=== PATIENT | female | born 1960 | race Caucasian/White ===

== ENCOUNTER 2017-05-21 12:23 | Inpatient (IN) | payer MEDICARE ==
[2017-05-20 13:33] LABS: BASOPHILS 0.5 %; BASOPHILS ABSOLUTE 0.05 10/3/uL (0.0-0.16); EOSINOPHILS 2.4 %; EOSINOPHILS ABSOLUTE 0.25 10/3/uL (0.0-0.53); HEMATOCRIT 36.4 % (36.0-48.0); HEMOGLOBIN 11.9 g/dL (12.0-16.0); IMMATURE GRANULOCYTES 0.7 %; IMMATURE GRANULOCYTES ABSOLUTE 0.07 10/3/uL (0.0-0.11); LYMPHOCYTES 28.7 %; LYMPHOCYTES ABSOLUTE 2.93 10/3/uL (0.67-4.30); MEAN CORPUS HGB CONC 32.7 g/dL (32.0-36.0); MEAN CORPUSCULAR HEMOGLOB 29.5 pg (26.0-34.0); MEAN CORPUSCULAR VOLUME 90.3 fL (80-100); MEAN PLATELET VOLUME 10.8 fL (9.2-13.0); MONOCYTES 8.6 %; MONOCYTES ABSOLUTE 0.88 10/3/uL (0.21-1.20); NEUTROPHILS 59.1 %; NEUTROPHILS ABSOLUTE 6.04 10/3/uL (2.02-8.40); PLATELET COUNT 387 10/3/uL (150-400); RBC DISTRIBUTION WIDTH 15.3 % (12.0-16.0); RED CELL COUNT 4.03 10/6/uL (4.0-5.6); WHITE BLOOD CELLS 10.2 10/3/uL (4.5-10.5)
[2017-05-20 13:35] LABS: MANUAL DIFF NO %
[2017-05-20 13:42] LABS: BUN (BLOOD UREA NITROGEN) 11 MG/DL (6-23); CALCIUM, SERUM 9.3 MG/DL (8.5-10.4); CHLORIDE, SERUM 108 MMOL/L (96-112); CO2 (CARBON DIOXIDE) 30 MMOL/L (24-34); CREATININE 0.89 MG/DL (0.55-1.02); GFR AFRICAN AMERICAN 85 ML/MIN (>=60); GFR NON AFRICAN AMERICAN 73 ML/MIN (>=60); GLUCOSE, SERUM 84 MG/DL (60-99); POTASSIUM, SERUM 3.8 MMOL/L (3.5-5.3); SODIUM, SERUM 143 MMOL/L (135-148)
[~2017-05-21] VITALS: Ht 160 cm; Wt 116.3 kg
--- NOTE | ~2017-05-21 | CN ---
Consultation Report [facility] [address] [place]. [address] NAME: GRIS VELAZQUEZ : 62 STATUS : ADM IN [facility] WITH [facility]#: [id number] AGE: 56 ADM/REG DATE : 05/21/17 MR#: [id number] REPORT SERV DATE: 05/22/17 DICTATED BY: SOHAM AZUL DATE: 05/21/17 REPORT STATUS : Draft TRANSCRIBED BY: MILA DATE: 05/21/17 DATE OF CONSULTATION: 05/21/2017 REASON FOR CONSULTATION: Consulted for medical and diabetes management. IDENTIFYING DATA: 1. Primary care physician is Chris Javed at [facility]. 2. Pain management, Bora Michaud. HISTORY OF PRESENT ILLNESS: This is a pleasant 56-year-old female with a longstanding history of COPD and asthma. She is chronically on O2 at 2 L nasal cannula at home, also essential hypertension for which she also has a history of dysrhythmias in the past, hypercholesterolemia, depression, and anxiety as well as a diagnosis of diabetes type 2, diagnosed on 06/2016. Presently, the hospitalist group has been consulted for medical and diabetes management. The patient's blood sugars on admission pre-surgery had a glucose of 85. She is presently on her O2 at 2 L with an O2 saturation at 96%. Her blood pressure is presently controlled at 135/87 and she will have her cholesterol, depression, and medications for her diabetic neuropathy continued as she has no present complaints. The patient's history was obtained through interview with the patient. The patient has not been here at this facility prior. She states she has been to an [facility] facility, and prior to that, her care was in [place]. PAST MEDICAL HISTORY: 1. The patient wears glasses and has dentures. 2. Ovarian cyst. 3. Sinusitis. 4. Arthritis. 5. Diverticulitis. 6. Anxiety and depression. 7. Frequent UTIs. 8. Genital warts for which she takes Valtrex every morning. 9. Hypertension. 10.High cholesterol. 11.Dysrhythmias where the patient is noted on metoprolol, but she has no fly finisher and states her primary care physician manages her care. 12.Chronic O2 at 2 L nasal cannula. 13.COPD. 14.Asthma. 15.Chronic knee pain. 16.Gastroesophageal reflux disease. 17.Neuropathy in her hands and feet. 18.Diabetes type 2, diagnosed 06/2016 where she presently states her average blood sugars are up to 120s. 19.Frequent falls, which has led her to this present hospitalization with her displaced Consultation Report [facility] [id number] [place]. [address] NAME: GRIS VELAZQUEZ : 62 STATUS : ADM IN PAT#: [id number] AGE: 56 ADM/REG DATE : 05/21/17 MR#: [id number] REPORT SERV DATE: 05/22/17 DICTATED BY: SOHAM AZUL DATE: 05/21/17 REPORT STATUS : Draft TRANSCRIBED BY: MILA DATE: 05/21/17 fracture of the left fibula. HOME MEDICATIONS: 1. Levemir 30 units subcu twice a day. 2. Jentadueto 2.5 mg/1000 mg tablet one tablet p.o. with breakfast and supper. 3. Lopressor 100 mg p.o. twice a day. 4. Lopressor 50 mg p.o. daily at 1500. 5. Singulair 10 mg p.o. at bedtime. 6. MS Contin 15 mg p.o. every 12 hours. 7. Movantik 25 mg p.o. every morning. 8. Naprosyn 500 mg p.o. every 12 hours. 9. Albuterol inhaler two puffs inhalation every 6 hours p.r.n. as needed for shortness of breath. 10.Xanax 1 mg p.o. three times daily. 11.Lipitor 40 mg p.o. every morning. 12.Flexeril 10 mg p.o. four times daily. 13.Cymbalta 60 mg p.o. at bedtime. 14.Fenofibrate 160 mg p.o. every morning. 15.NovoLog 10 units subcu before meals. 16.Endocet 10/325 tablets one tablet p.o. every 6 hours p.r.n. pain. 17.Protonix 20 mg p.o. at bedtime. 18.Lyrica 200 mg p.o. three times daily. 19.Phenergan 25 mg p.o. at bedtime. 20.Requip 2 mg p.o. three times daily. 21.Zanaflex 4 mg p.o. three times daily. 22.Valtrex 1000 mg p.o. every morning and it is noted that the patient also uses this medication p.r.n. for her genital warts. ALLERGIES: SULFA. SOCIAL HISTORY: The patient is . Has three children. States she uses a cane and a walker to ambulate at home where she has 5 stairs to her porch, otherwise, a single level, was a previous smoker for 33 years and quit December of 2016. She states she does have occasional drink of wine, maybe once a week. FAMILY HISTORY: Mother is positive for hypertension. Father is positive for myocardial infarction and coronary artery disease and was at 50 years of age. The patient has one brother who is at 47 years old from lung cancer. The patient has one sister who is physically well, although she is mentally handicapped. SURGICAL HISTORY: 1. The patient previously had a stress test and echo in 2011 when she resided in [place] and states that she had no problems. 2. Colonoscopy in 2008. 3. Sinus surgery in 2002. Consultation Report [address] [place]. [address] NAME: GRIS VELAZQUEZ : 62 STATUS : ADM IN [facility] WITH [facility]#: [id number] AGE: 56 ADM/REG DATE : 05/21/17 MR#: [id number] REPORT SERV DATE: 05/22/17 DICTATED BY: SOHAM AZUL DATE: 05/21/17 REPORT STATUS : Draft TRANSCRIBED BY: MILA DATE: 05/21/17 4. Left ankle fracture for which she fell a month ago and is presently status post ORIF of the left distal ankle on 05/21/2017. 5. Right elbow surgery in 2006. 6. Cholecystectomy in 1985. 7. Appendectomy in 1985. 8. Hysterectomy in 1985. 9. Spinal stimulator placed in 2014. REVIEW OF SYSTEMS: A full 10-point review of systems was obtained. Pertinent positives are noted in HPI. All other systems are negative. Presently, the patient is alert and oriented x3. She has no complaints of chest pain. No shortness of breath. No nausea and vomiting. No abdominal pain. Displays no confusion or agitation. No change in bowel or bladder habits. No fever. She also presently is not complaining of any op-site pain after she is status post ORIF of the left distal ankle from a closed displaced fracture, which was done by Dr. Cesar Topete on 05/21/2017. PHYSICAL EXAMINATION: VITAL SIGNS: From today, blood pressure 135/87, respiratory rate 14, heart rate 72, O2 saturation 96% on 2 L nasal cannula. GENERAL: This is a very pleasant, obese 56-year-old female, resting in bed. She is in no acute distress. NEURO: Her head is atraumatic, normocephalic. She is alert and oriented x3. Her cranial nerves are intact. Her mood is pleasant and appropriate. She does state that she feels she forgets things at times though. NECK: Supple. Trachea is midline. No JVD. No obvious thyromegaly or lymphadenopathy. EENT: Her sclerae are nonicteric. Pupils are equal and reactive to light. Nares are patent. Mucous membranes moist. Tongue midline without deviation and her soft palate rises equally with phonation. CHEST: No pain with palpation. No complaints of chest pain. LUNGS: Clear to auscultation bilaterally. She has normal respiratory effort. She has no increased work of breathing with conversation. She is on O2 at 2 L continually at home as well as while she is in hospitalization. CARDIOVASCULAR: S1, S2. No obvious murmurs, rubs, or gallops. She is on defensive monitoring, displays a sinus rhythm with a rate at 72. ABDOMEN: She is obese, soft nontender. Has active bowel sounds. No palpable organomegaly. Last bowel movement was noted on 05/17/2017. EXTREMITIES: Pedal pulses are present to the right lower extremity with no calf tenderness and no edema. She has her lower left extremity wrapped from the knee down. She will have TEDs and SCDs to the right lower extremity in place for DVT prophylaxis. SKIN: Warm and dry. No unusual rashes or lesions. Normal color and turgor. PSYCH: Pleasant, cooperative, appropriate mood and affect. LABORATORY DATA: Sodium 143, potassium 3.8, chloride 108, BUN 11, creatinine 0.89, glucose 84, GFR 85, calcium 9.3. White blood cell 10.2, hemoglobin 11.9, hematocrit 36.4, platelets Consultation Report [facility] [address]. [address] NAME: GRIS VELAZQUEZJANINE : 62 STATUS : ADM IN PAT#: [id number] AGE: 56 ADM/REG DATE : 05/21/17 MR#: [id number] REPORT SERV DATE: 05/22/17 DICTATED BY: SOHAM AZUL DATE: 05/21/17 REPORT STATUS : Draft TRANSCRIBED BY: MILA DATE: 05/21/17 387. Her noted blood sugars while inpatient have been 85, 84, 72, 77, 71. On 05/20/2017, she had an ECG, which displayed normal sinus rhythm with a rate at 71 and normal ECG. ASSESSMENT AND PLAN: 1. The patient has diabetes type 2, diagnosed 06/2016. She states she checks her blood sugars three times a day at most. Her average blood sugars are usually up in the 120 she states. She is presently postop from having ORIF from a left distal ankle. The patient's Jentadueto is on hold and presently we are holding her preprandial NovoLog of 10 units before meals. Her blood sugars are on the low side. She will continue her Levemir 30 units b.i.d. and we will place her on a sliding scale insulin level 2 with a hypoglycemic protocol. We will check a blood sugar at 2 a.m. and the staff can call if it is greater than 150. She is already on an 1800 ADA diet and she states she is hungry. The paraeducator will see her in the a.m. regarding diet as well as monitoring. 2. The patient has a history of COPD as well as asthma. She is on chronic O2 at 2 L at home. She will remain on continuous O2 at 2 L. She will have continuous O2 sats monitored to keep her sat 92% or greater. We will add albuterol nebulizers q.6 hours p.r.n. shortness of breath or wheezing. 3. The patient has a history of essential hypertension. She also has a history of dysrhythmias, although she states she is unsure of what the dysrhythmias are. It is noted that she is on Lopressor b.i.d. as well as at 1500 each day and we will continue that and she is presently on defensive monitoring. 4. Hypercholesterolemia. The patient does have a history of high cholesterol. We will continue her Lipitor as well as her fenofibrate. 5. Depression. The patient also has a history of anxiety. She will be continued on her Cymbalta. Her Xanax will be given p.r.n. as needed. 6. Neuropathy. The patient has complaints of neuropathy in her hands as well as her feet. We will continue her Lyrica as well as her Requip. 7. A.m. labs, BMP, CBC, magnesium, phosphorus, hemoglobin A1c, and portable chest x-ray. The hospitalist group would like to thank you for this consultation. Let us know if we could be of further assistance. COLLABORATING PHYSICIAN: Soham Azul MD. DICTATED BY: Allison Orourke NP DR/MILA Soham Azul MD / [phone] Consultation Report [address] [address] NAME: GRSI VELAZQUEZ : 62 STATUS : ADM IN PAT#: [id number] AGE: 56 ADM/REG DATE : 05/21/17 MR#: [id number] REPORT SERV DATE: 05/22/17 DICTATED BY: SOHAM AZUL DATE: 05/21/17 REPORT STATUS : Draft TRANSCRIBED BY: MILA DATE: 05/21/17 CC: Cesar Topete D.P.M.
--- NOTE | ~2017-05-21 | OP ---
Record Of Operation [facility] [address] [place]. [address] NAME: GRIS VELAZQUEZ : 62 STATUS : ADM IN PAT#: [id number] AGE: 56 ADM/REG DATE : 05/21/17 MR#: [id number] REPORT SERV DATE: 05/23/17 DICTATED BY: CESAR TOPETE DATE: 05/23/17 REPORT STATUS : Draft TRANSCRIBED BY: MILA DATE: 05/23/17 DATE OF PROCEDURE: 05/21/2017 LOCATION: [facility]. PREOPERATIVE DIAGNOSIS: Fracture, left ankle. POSTOPERATIVE DIAGNOSIS: Fracture, left ankle. PROCEDURE: Open reduction and internal fixation, left ankle. ANESTHESIA: Spinal. HEMOSTASIS: 350 mmHg, thigh tourniquet. ESTIMATED BLOOD LOSS: 10 mL. MATERIALS: 0 Vicryl, 4-0 Vicryl, skin vel, Arthrex fibular plate with 2.7 locking screws, and 3.5 mm locking and nonlocking screws. COMPLICATIONS: None. INDICATIONS: This is a 56-year-old female who presented to the office with concern of ankle pain. The patient states that she has had swelling and pain in her ankle for a little over a week after injuring her ankle. The patient is concerned that she had an ankle sprain. Clinical examination was consistent with edema and pain particularly to the lateral aspect of the left ankle. Ankle x-rays confirmed a Dietz B oblique fracture of the left fibula with displacement of the fracture. However, no significant displacement or medial clear space noted in the left ankle joint. Due to the displacement of the fibular fracture with concern of further displacement which could result in ankle valgus deformity and possible posttraumatic arthritis, it was discussed with the patient that she would benefit from an open reduction and internal fixation of the left ankle. Discussed with the patient at length the alternatives, benefits, and possible complications of the surgical procedure. Discussed with the patient the procedure and recovery period in great detail. No promises or guarantees given and the patient scheduled for surgery. BRIEF SUMMARY OF OPERATION: The patient was brought to the operating room and transferred to the operating table in supine position. Appropriate monitoring including EKG, blood pressure, pulse oximeter were attached to the patient and found to be in good working order. IV access was established by Anesthesia. The patient received preoperative antibiotics. The patient was identified by the surgeon. Sedation was administered, and the patient was then given a spinal block by the Anesthesia Service. The patient's left foot and leg were then prepped and draped in the usual sterile manner. Left foot and leg were elevated, exsanguinated, and a thigh tourniquet was raised to 350 mmHg. Attention was directed toward the lateral aspect of the left ankle where the fracture was Record Of Operation [facility] [id number] [facility] [place]. [address] NAME: GRIS VELAZQUEZ : 62 STATUS : ADM IN PAT#: [id number] AGE: 56 ADM/REG DATE : 05/21/17 MR#: [id number] REPORT SERV DATE: 05/23/17 DICTATED BY: CESAR TOPETE DATE: 05/23/17 REPORT STATUS : Draft TRANSCRIBED BY: MILA DATE: 05/23/17 identified via fluoroscopy. A lateral mid fibular incision was made over the distal aspect of the left fibula and deepened with sharp and blunt dissection. Superficial veins were identified and ligated via electrocautery. Neurovascular structures were identified, retracted from the operative site. The deep fascia and periosteal capsule layer were identified and incised along the course of the distal fibula. At this time, the oblique fibular fracture was identified. With the use of a small bone curette, the fracture was cleaned of any debris including soft tissue and reduced and held in place with a bone clamp. An interfragmental screw was then inserted across the fracture via good AO technique with a 3.5 mm cortical bone screw. Once the screw was in place, proper position of the screw was confirmed via fluoroscopy and bone clamp was removed. At this time, an Arthrex fibular plate was applied over the lateral distal fibula over the fracture site and secured via good AO technique using both 3.5 mm cortical locking and nonlocking screws as well as 2.7 mm locking screws for the fibular-malleolar portion of the plate. Proper position of the plate was confirmed via fluoroscopy. Good reduction of the fracture was noted via fluoroscopy and visually and the ankle joint was in good alignment. Operative site was copiously irrigated with normal saline. Deep fascial periosteal capsular tissue were reapproximated with 2-0 Vicryl suture. Subcutaneous tissue was reapproximated with 3-0 Vicryl suture. Skin was reapproximated with skin vel. Standard postoperative dressing including Xeroform, dry sterile gauze, and cast padding were applied to the left foot and leg. The patient was then placed in a [id number] Gomez compression dressing and AO splint. Tourniquet was let down, and cap refill was noted to return to the foot immediately and be well within normal limits under three seconds. The patient tolerated the procedure and anesthesia well. The patient left the operating room, returned to recovery room with vital signs stable and vital signs intact. The patient will be admitted to [facility] for postoperative care including postoperative antibiotics and pain management. Due to the patient's medical history, it was recommended to the patient and the patient's that she be admitted to a skilled care facility once ready for discharge for assistance with her postoperative recovery including assistance with essential activities of daily living, especially during the first few weeks of her postoperative recovery. We will follow up the patient on floor. ABEL/MILA Cesar Topete D.P.M. / [id number] CC: Cesar Topete D.P.M. UNKNOWN
[~2017-05-21 12:23] MED LIST: CYMBALTA60 PO; ENDOCET1 TA3 PO; FLEX PO; JENTADUETO 2.51 EAC2 PO; LEVEMFLXPN SC; LIPITOR40 PO; LOFIB160 PO; LOP100 PO; LOP50 PO; LYRICA200 MG PO; MOVANTIK25 MG PO; MSCONT15 PO; NAP500 PO; NOVOPEN SC; PR25 PO; PROTONIX20 MG PO; REQUIP2 PO; SINGULAIR1 PO; VALTREX5 PO; VENTOLIN HFA INH; XANAX1 MG PO; ZANAFLEX 4 MG TA4 MG PO
[2017-05-22 04:48] LABS: BASOPHILS 0.3 %; BASOPHILS ABSOLUTE 0.03 10/3/uL (0.0-0.16); EOSINOPHILS 3.2 %; EOSINOPHILS ABSOLUTE 0.29 10/3/uL (0.0-0.53); HEMOGLOBIN 10.2 g/dL (12.0-16.0); IMMATURE GRANULOCYTES 0.6 %; IMMATURE GRANULOCYTES ABSOLUTE 0.05 10/3/uL (0.0-0.11); MEAN CORPUS HGB CONC 32.8 g/dL (32.0-36.0); MEAN CORPUSCULAR HEMOGLOB 29.4 pg (26.0-34.0); MEAN CORPUSCULAR VOLUME 89.6 fL (80-100); MEAN PLATELET VOLUME 10.3 fL (9.2-13.0); MONOCYTES 8.3 %; MONOCYTES ABSOLUTE 0.75 10/3/uL (0.21-1.20); NEUTROPHILS 56.6 %; NEUTROPHILS ABSOLUTE 5.12 10/3/uL (2.02-8.40); PLATELET COUNT 320 10/3/uL (150-400); RBC DISTRIBUTION WIDTH 15.9 % (12.0-16.0); RED CELL COUNT 3.47 10/6/uL (4.0-5.6)
[2017-05-22 04:53] LABS: HEMATOCRIT 31.1 % (36.0-48.0); MANUAL DIFF NO %
[2017-05-22 05:02] LABS: BUN (BLOOD UREA NITROGEN) 12 MG/DL (6-23); CALCIUM, SERUM 8.7 MG/DL (8.5-10.4); CHLORIDE, SERUM 108 MMOL/L (96-112); CO2 (CARBON DIOXIDE) 26 MMOL/L (24-34); CREATININE 0.86 MG/DL (0.55-1.02); GFR AFRICAN AMERICAN 88 ML/MIN (>=60); GFR NON AFRICAN AMERICAN 76 ML/MIN (>=60); PHOSPHORUS, SERUM 3.8 MG/DL (2.5-4.5); POTASSIUM, SERUM 3.6 MMOL/L (3.5-5.3); SODIUM, SERUM 142 MMOL/L (135-148)
[2017-05-22 05:03] LABS: GLUCOSE, SERUM 115 MG/DL (60-99)
[2017-05-22 07:37] LABS: GLYCOHEMOGLOBIN (HbA1c) 5.4 % (4.7-6.1)
[2017-05-22 16:10] LABS: B NATRIURETIC PEPTIDE (BNP) 61.5 PG/ML (< 100.0)
[2017-05-23 05:32] LABS: BASOPHILS 0.4 %; BASOPHILS ABSOLUTE 0.04 10/3/uL (0.0-0.16); BUN (BLOOD UREA NITROGEN) 10 MG/DL (6-23); CALCIUM, SERUM 9.3 MG/DL (8.5-10.4); CHLORIDE, SERUM 105 MMOL/L (96-112); CO2 (CARBON DIOXIDE) 28 MMOL/L (24-34); CREATININE 0.88 MG/DL (0.55-1.02); EOSINOPHILS 2.6 %; EOSINOPHILS ABSOLUTE 0.24 10/3/uL (0.0-0.53); GFR AFRICAN AMERICAN 86 ML/MIN (>=60); GFR NON AFRICAN AMERICAN 74 ML/MIN (>=60); GLUCOSE, SERUM 125 MG/DL (60-99); HEMATOCRIT 30.8 % (36.0-48.0); HEMOGLOBIN 10.1 g/dL (12.0-16.0); IMMATURE GRANULOCYTES 0.6 %; IMMATURE GRANULOCYTES ABSOLUTE 0.06 10/3/uL (0.0-0.11); LYMPHOCYTES 31.8 %; LYMPHOCYTES ABSOLUTE 2.97 10/3/uL (0.67-4.30); MEAN CORPUS HGB CONC 32.8 g/dL (32.0-36.0); MEAN CORPUSCULAR HEMOGLOB 29.7 pg (26.0-34.0); MEAN CORPUSCULAR VOLUME 90.6 fL (80-100); MEAN PLATELET VOLUME 10.6 fL (9.2-13.0); MONOCYTES 10.6 %; MONOCYTES ABSOLUTE 0.99 10/3/uL (0.21-1.20); NEUTROPHILS ABSOLUTE 5.04 10/3/uL (2.02-8.40); PLATELET COUNT 320 10/3/uL (150-400); POTASSIUM, SERUM 3.6 MMOL/L (3.5-5.3); SODIUM, SERUM 141 MMOL/L (135-148); WHITE BLOOD CELLS 9.3 10/3/uL (4.5-10.5)
[2017-05-23 05:35] LABS: MANUAL DIFF NO %
[2017-05-24 06:41] LABS: BASOPHILS 0.5 %; BASOPHILS ABSOLUTE 0.04 10/3/uL (0.0-0.16); EOSINOPHILS 2.8 %; EOSINOPHILS ABSOLUTE 0.22 10/3/uL (0.0-0.53); HEMOGLOBIN 10.7 g/dL (12.0-16.0); IMMATURE GRANULOCYTES ABSOLUTE 0.08 10/3/uL (0.0-0.11); LYMPHOCYTES 33.4 %; LYMPHOCYTES ABSOLUTE 2.58 10/3/uL (0.67-4.30); MEAN CORPUS HGB CONC 32.4 g/dL (32.0-36.0); MEAN CORPUSCULAR HEMOGLOB 29.5 pg (26.0-34.0); MEAN CORPUSCULAR VOLUME 90.9 fL (80-100); MEAN PLATELET VOLUME 10.7 fL (9.2-13.0); MONOCYTES 12.2 %; MONOCYTES ABSOLUTE 0.94 10/3/uL (0.21-1.20); NEUTROPHILS 50.1 %; NEUTROPHILS ABSOLUTE 3.87 10/3/uL (2.02-8.40); PLATELET COUNT 333 10/3/uL (150-400); RBC DISTRIBUTION WIDTH 15.9 % (12.0-16.0); RED CELL COUNT 3.63 10/6/uL (4.0-5.6); WHITE BLOOD CELLS 7.7 10/3/uL (4.5-10.5)
[2017-05-24 06:47] LABS: MANUAL DIFF NO %
[2017-05-24 06:53] LABS: BUN (BLOOD UREA NITROGEN) 10 MG/DL (6-23); CALCIUM, SERUM 9.2 MG/DL (8.5-10.4); CHLORIDE, SERUM 106 MMOL/L (96-112); CO2 (CARBON DIOXIDE) 29 MMOL/L (24-34); CREATININE 0.86 MG/DL (0.55-1.02); GFR AFRICAN AMERICAN 88 ML/MIN (>=60); GFR NON AFRICAN AMERICAN 76 ML/MIN (>=60); GLUCOSE, SERUM 124 MG/DL (60-99); POTASSIUM, SERUM 3.8 MMOL/L (3.5-5.3); SODIUM, SERUM 141 MMOL/L (135-148)
== END 2017-05-26 17:57 | DRG 493 ==
LOC: ENRESERV → ENRESERVTM → ENRESERVDT → SDC 12:23 → 3SO 19:57
PROVIDERS: Nurse Practitioner; Nurse Practitioner Family; Podiatrist
PROC: 0QSK04Z Reposition Left Fibula with Internal Fixation Device, Open Approach (ICD-10-PCS; principal; 2017-05-21 14:30)
DX: S82.832A Other fracture of upper and lower end of left fibula, initial encounter for closed fracture (principal); Z68.41 Body mass index [BMI] 40.0-44.9, adult; E11.40 Type 2 diabetes mellitus with diabetic neuropathy, unspecified; Z99.81 Dependence on supplemental oxygen; I10 Essential (primary) hypertension; F32.9 Major depressive disorder, single episode, unspecified; J44.9 Chronic obstructive pulmonary disease, unspecified; F41.9 Anxiety disorder, unspecified; A63.0 Anogenital (venereal) warts; K21.9 Gastro-esophageal reflux disease without esophagitis; Z91.81 History of falling; Z79.4 Long term (current) use of insulin; Z79.84 Long term (current) use of oral hypoglycemic drugs; Z79.899 Other long term (current) drug therapy; Z88.2 Allergy status to sulfonamides; E66.01 Morbid (severe) obesity due to excess calories; W19.XXXA Unspecified fall, initial encounter; E78.5 Hyperlipidemia, unspecified; I51.7 Cardiomegaly; K59.00 Constipation, unspecified; G89.29 Other chronic pain
CPT/HCPCS: 71010; 76000; 80048; 82962; 83036; 83735; 83880; 84100; 85025; 93005; 93306; 94640; 97110-GP; 97116-GP; 97161-GP; 97530-GP; A9270-GY; C1713; G8978-CK-GP; G8979-CI-GP; J0360; J0690; J2250; J2405; J3010